=== PATIENT | female | born 1940 | race African-American/Black ===

== ENCOUNTER 2017-03-16 14:27 | Emergency (ER) | payer MEDICARE, MEDICAID ==
[~2017-03-16] VITALS: Ht 167.6 cm; Wt 120.0 kg
[~2017-03-16 14:27] MED LIST: ATOR20TA65 PO; CLON0.1T PO; CLOP75TA33 PO; FURO40TA5 PO; HYDR100T26 PO; INSLAN SQ; METO50TA5 PO; NIFE60TA64 PO; OMEP40CA34 PO
[2017-03-16] MEDS ORDERED: SODIUM CHLORIDE 0.9% 500 ML IV ONE (16:22)
[2017-03-16] MEDS ORDERED: FAMOTIDINE 20MG/2ML VIAL IV STA (16:22)
[2017-03-16] MEDS ORDERED: ONDANSETRON HCL 4MG/2ML VIAL IV STA (16:22)
[2017-03-16] MEDS ORDERED: MORPHINE SULFATE 4 MG/ML CPJ (NOT FOR IM USE) IV STA (16:22)
[2017-03-16 17:03] LABS: PROTHROMBIN TIME 10.7 sec
[2017-03-16 17:04] LABS: BASOPHILS % 0.3 % (0.0-2.0); EOSINOPHILS % 0.8 % (0.0-5.0); HEMATOCRIT. 33.6 % (36.0-48.0); HEMOGLOBIN. 10.8 g/dL (12.0-16.0); LYMPHOCYTES % 15.8 % (20.0-50.0); MEAN CORPUSCULAR HEMOGLOBIN 27.8 pg (28.0-32.0); MEAN CORPUSCULAR VOLUME 86.9 fL (81.0-99.0); MEAN PLATELET VOLUME 7.4 fl (7.4-10.4); MONOCYTES % 5.9 % (2.0-8.0); NEUTROPHILS % 77.2 % (40.0-76.0); PLATELET 320 x1000/uL (130-400); RED BLOOD CELL COUNT 3.87 mill/uL (4.2-5.4); RED CELL DISTRIBUTION WIDTH 16.1 % (11.6-14.6)
[2017-03-16 17:15] LABS: CARBON DIOXIDE 31 mEq/L (21-32); CHLORIDE 97 mEq/L (98-107); TROPONIN I < 0.02 ng/mL (0.00-0.04)
[2017-03-16 19:30] VITALS: BP 182/71
[2017-03-16] MEDS ORDERED: CLONIDINE 0.1MG TABLET PO ONE (20:30)
[2017-03-19] MEDS ORDERED: FAMO-134 PO (11:59)
[2017-03-19] MEDS ORDERED: LOV40 SQ (11:59)
[2017-03-19] MEDS ORDERED: CELE100C PO (11:59)
[2017-03-19] MEDS ORDERED: FURO-151 PO (11:59)
[2017-03-19] MEDS ORDERED: DOCU-150 PO (11:59)
[2017-03-19] MEDS ORDERED: DUONEB INH (11:59)
[2017-03-19] MEDS ORDERED: VITAMIN C TABLET PO (11:59)
[2017-03-19] MEDS ORDERED: LACTU (11:59)
[2017-03-19] MEDS ORDERED: CLON0.2T PO (11:59)
[2017-03-19] MEDS ORDERED: HYDR-523 PO (11:59)
[2017-03-19] MEDS ORDERED: ACET-2178 PO (11:59)
[2017-03-19] MEDS ORDERED: ONDA4TAB5 PO (11:59)
[2017-03-19] MEDS ORDERED: [UNRECOGNIZED DRUG - OTHER] PO (11:59)
[2017-03-19] MEDS ORDERED: LACTULOSE 20 GM/30 ML PO (12:02)
== END 2017-03-16 21:05 | disposition home or self-care (01) ==
LOC: ER 14:29 → CANBEDREQ 22:51
DX: K29.70 Gastritis, unspecified, without bleeding (principal); I11.0 Hypertensive heart disease with heart failure; I50.9 Heart failure, unspecified; E78.00 Pure hypercholesterolemia, unspecified; E11.9 Type 2 diabetes mellitus without complications; Z88.0 Allergy status to penicillin; Z79.4 Long term (current) use of insulin
CPT/HCPCS: 36415; 71010; 74176; 80053; 83690; 83880; 84484; 85025; 85610; 93005; 93970; 96374; 96375; 99285; J2270; J2405; J3490; J7040; 81003